=== PATIENT | female | born 1985 | race American Indian/Alaskan Native ===

== ENCOUNTER 2019-11-09 19:15 | Emergency (ER) | payer MEDICAID ==
--- NOTE | 2019-11-09 19:26 | Emergency Department Report ---
Blank Doc - Documentation Documentation: 34-year-old female that presents with vaginal bleeding and pelvic pain. This initial assessment/diagnostic orders/clinical plan/treatment(s) is/are subject to change based on patient's health status, clinical progression and re- assessment by fellow clinical providers in the ED. Further treatment and workup at subsequent clinical providers discretion. Patient/guardians urged not to elope from the ED as their condition may be serious if not clinically assessed and managed. Initial orders include: 1- Patient sent to [facility] for further evaluation and treatment 2- labs 3- UA 4- US OB
[2019-11-09 19:58] LABS: Bilirubin,Urine NEG (Negative); Blood,Urine LG (Negative); Color,Urine Yellow (Yellow); Mucus,Urine 2+ /HPF; Protein,Urine <15 mg/dL mg/dL (Negative)
[2019-11-09 20:18] VITALS: BP 104/72
--- NOTE | 2019-11-09 21:57 | Ultrasound Report ---
ULTRASOUND OBSTETRIC INDICATION / CLINICAL INFORMATION: vaginal bleedign and pelvic pain. Clinical Gestational Age (GA): 8 weeks 3 days by LMP TECHNIQUE: Transabdominal and Transvaginal. COMPARISON: None available. FINDINGS: No intrauterine gestational sac is identified. The uterus measures 9.4 x 4.1 x 6[address] ripe is 1 cm. ADNEXA: Left ovary is unremarkable. In the right ovary, there is a cystic area that has a thick wall but no increased peripheral vascularity, indeterminate but potentially representing a corpus luteum. This has a central hypoechoic area that measures 0.8 m in greatest dimension. Separate thin-walled, h ypoechoic cystic structure in the right ovary without increased blood flow measures 0.5 x 0.8 x 0.4 c m. FREE FLUID: Trace free fluid in the pelvis. ADDITIONAL FINDINGS: None. IMPRESSION: No intrauterine gestational sac is identified. This is considered a of unknown location. Se rial monitoring of beta hCG and close clinical follow-up are recommended, with repeat ultrasound as n eeded. If/when repeat pelvic ultrasound is performed, attention to the right ovary is recommended. Signer Name: Kamlesh Marcelino MD Signed: 11/09/2019 9:53 PM Workstation Name: [id number]
[2019-11-09 22:09] LABS: Basophils % (Auto) 0.9 % (0.0-1.8); Eosinophils # (Auto) 0.1 K/mm3 (0.0-0.4); Eosinophils % (Auto) 1.6 % (0.0-4.3); Hematocrit 33.8 % (30.3-42.9); Hemoglobin 10.8 gm/dl (10.1-14.3); Lymphocytes # (Auto) 1.4 K/mm3 (1.2-5.4); Mean Corpuscular HGB Conc 32 % (30-34); Mean Corpuscular Volume 86 fl (79-97); Monocytes # (Auto) 0.5 K/mm3 (0.0-0.8); Monocytes % (Auto) 10.7 % (0.0-7.3); Platelet Count 278 K/mm3 (140-440); Red Blood Count 3.96 M/mm3 (3.65-5.03); Red Cell Distribution Width 18.1 % (13.2-15.2)
--- NOTE | 2019-11-10 00:24 | Emergency Department Report ---
ED Female HPI - General Chief complaint: Vaginal Bleeding Stated complaint: LOWER ABD PAIN Time Seen by Provider: 11/09/19 19:25 Source: patient Mode of arrival: Ambulatory Limitations: No Limitations - History of Present Illness Initial comments: This is a 34-year-old -0-0-2 who presents the ED complaining of vaginal bleeding for the past week and a half. Patient states she was seen by her SAND ANALYST late February [place] and had a confirmed . Patient states last menstrual period was September 11, 2019. Patient states that she uses about 1 pad an hour. Patient was seen by her SAND ANALYST on Thursday and had a quant drawn. Patient states she cannot recall what the number was. Patient denies dysuria, abdominal pain, pelvic pain, fatigue, shortness of breath, chest pain or any other symptoms. MD Complaint: vaginal bleeding - Related Data Previous Rx's Medication Instructions Recorded Last Taken Type Ferrous Sulfate [Feosol 325 MG tab] 325 mg PO BID #60 tablet 12/03/14 Unknown Rx Vit-Fe Fumar-FA [ 1 each PO QDAY #30 tablet 12/03/14 Unknown Rx Vitamin] Ibuprofen [Motrin 800 MG tab] 800 mg PO Q8HR PRN #30 tablet 12/21/15 Unknown Rx Cyclobenzaprine [Flexeril] 10 mg PO TID PRN #30 tablet 01/10/16 Unknown Rx Ibuprofen [Motrin 600 MG tab] 600 mg PO Q6H #30 tablet 01/10/16 Unknown Rx traMADoL [Ultram] 50 mg PO Q6HR PRN #20 tablet 01/10/16 Unknown Rx Allergies Allergy/AdvReac Type Severity Reaction Status Date / Time Penicillins Allergy Diarrhea Verified 04/19/13 04:27 pseudoephedrine Allergy Rash Verified 04/19/13 04:27 banana Allergy Hives Uncoded 04/19/13 04:27 melon Allergy Shortness Uncoded 04/19/13 04:27 of Breath ED Review of Systems ROS: Stated complaint: LOWER ABD PAIN Other details as noted in HPI Comment: All other systems reviewed and negative ED Past Medical Hx - Past Medical History Previous Medical History?: Yes Hx Hypertension: No Hx CVA: No Hx Heart Attack/AMI: No Hx Congestive Heart Failure: No Hx Diabetes: No Hx Deep Vein Thrombosis: No Hx Pulmonary Embolism: No Hx GERD: No Hx Liver Disease: No Hx Renal Disease: No Hx Sickle Cell Disease: No Hx Arthritis: No Hx Headaches / Migraines: No Hx Seizures: No Hx Kidney Stones: No Hx Psychiatric Treatment: No Hx Asthma: Yes (attack 10 yrs ago) Hx COPD: No Hx Tuberculosis: No Hx Dementia: No Hx HIV: No Additional medical history: anemia - Surgical History Hx Coronary Stent: No Hx Open Heart Surgery: No Hx Pacemaker: No Hx Internal Defibrillator: No Hx Cholecystectomy: No Hx Appendectomy: No Hx Breast Surgery: No - Social History Smoking Status: Never Smoker Substance Use Type: None - Medications Home Medications: Home Medications Medication Instructions Recorded Confirmed Last Taken Type Ferrous Sulfate [Feosol 325 MG tab] 325 mg PO BID #60 tablet 12/03/14 Unknown Rx Vit-Fe Fumar-FA [ 1 each PO QDAY #30 tablet 12/03/14 Unknown Rx Vitamin] Ibuprofen [Motrin 800 MG tab] 800 mg PO Q8HR PRN #30 tablet 12/21/15 Unknown Rx Cyclobenzaprine [Flexeril] 10 mg PO TID PRN #30 tablet 01/10/16 Unknown Rx Ibuprofen [Motrin 600 MG tab] 600 mg PO Q6H #30 tablet 01/10/16 Unknown Rx traMADoL [Ultram] 50 mg PO Q6HR PRN #20 tablet 01/10/16 Unknown Rx ED Physical Exam - General Limitations: No Limitations General appearance: alert, in no apparent distress - Head Head exam: Present: atraumatic, normocephalic - Eye Eye exam: Present: normal appearance - ENT ENT exam: Present: mucous membranes moist - Neck Neck exam: Present: normal inspection - Respiratory Respiratory exam: Present: normal lung sounds bilaterally. Absent: respiratory distress - Cardiovascular Cardiovascular Exam: Present: regular rate, normal rhythm. Absent: systolic murmur, diastolic murmur, rubs, gallop - GI/Abdominal GI/Abdominal exam: Present: soft, normal bowel sounds - Extremities Exam Extremities exam: Present: normal inspection - Back Exam Back exam: Present: normal inspection - Neurological Exam Neurological exam: Present: alert, oriented X3 - Psychiatric Psychiatric exam: Present: normal affect, normal mood - Skin Skin exam: Present: warm, dry, intact, normal color. Absent: rash ED Course Vital Signs 11/09/19 11/10/19 19:27 00:25 Temperature 98 F Pulse Rate 101 H 84 Respiratory 18 17 Rate Blood Pressure 104/72 O2 Sat by Pulse 98 99 Oximetry ED Medical Decision Making - Lab Data Result diagrams: 11/09/19 21:13 Laboratory Last Values WBC 5.1 K/mm3 (4.5-11.0) 11/09/19 21:13 RBC 3.96 M/mm3 (3.65-5.03) 11/09/19 21:13 Hgb 10.8 gm/dl (10.1-14.3) 11/09/19 21:13 Hct 33.8 % (30.3-42.9) 11/09/19 21:13 MCV 86 fl (79-97) 11/09/19 21:13 MCH 27 pg (28-32) L 11/09/19 21:13 MCHC 32 % (30-34) 11/09/19 21:13 RDW 18.1 % (13.2-15.2) H 11/09/19 21:13 Plt Count 278 K/mm3 (140-440) 11/09/19 21:13 Lymph % (Auto) 27.0 % (13.4-35.0) 11/09/19 21:13 [place] % (Auto) 10.7 % (0.0-7.3) H 11/09/19 21:13 Eos % (Auto) 1.6 % (0.0-4.3) 11/09/19 21:13 Baso % (Auto) 0.9 % (0.0-1.8) 11/09/19 21:13 Lymph # 1.4 K/mm3 (1.2-5.4) 11/09/19 21:13 [place] # 0.5 K/mm3 (0.0-0.8) 11/09/19 21:13 Eos # 0.1 K/mm3 (0.0-0.4) 11/09/19 21:13 Baso # 0.0 K/mm3 (0.0-0.1) 11/09/19 21:13 Seg Neutrophils % 59.8 % (40.0-70.0) 11/09/19 21:13 Seg Neutrophils # 3.0 K/mm3 (1.8-7.7) 11/09/19 21:13 HCG, Quant 3712 mIU/mL (0-4) H 11/09/19 21:13 Urine Color Yellow (Yellow) 11/09/19 19:30 Urine Turbidity Clear (Clear) 11/09/19: Urine pH 5.0 (5.0-7.0) 11/09/19 19:30 Ur Specific [place] 1.019 (1.003-1.030) 11/09/19 19:30 Urine Protein <15 mg/dl mg/dL (Negative) 11/09/19: Urine Glucose (UA) Neg mg/dL (Negative) 11/09/19: Urine Ketones Neg mg/dL (Negative) 11/09/19: Urine Blood Lg (Negative) 11/09/19: Urine Nitrite Neg (Negative) 11/09/19 Urine Bilirubin Neg (Negative) 11/09/19: Urine Urobilinogen 2.0 mg/dL (<2.0) 11/09/19 19:30 Ur Leukocyte Esterase Neg (Negative) 11/09/19: Urine WBC (Auto) 1.0 /HPF (0.0-6.0) 11/09/19: Urine RBC (Auto) 3.0 /HPF (0.0-6.0) 11/09/19: U Epithel Cells (Auto) 1.0 /HPF (0-13.0) 11/09/19: Urine Mucus 2+ /HPF 11/09/19: Blood Type A POSITIVE 11/09/19 21:13 - Radiology Data Radiology results: report reviewed, image reviewed ULTRASOUND OBSTETRIC INDICATION / CLINICAL INFORMATION: vaginal bleedign and pelvic pain. Clinical Gestational Age (GA): 8 weeks 3 days by LMP TECHNIQUE: Transabdominal and Transvaginal. COMPARISON: None available. FINDINGS: No intrauterine gestational sac is identified. The uterus measures 9.4 x 4.1 x 6.2 cm. Endometrial stripe is 1 cm. ADNEXA: Left ovary is unremarkable. In the right ovary, there is a cystic area that has a thick wall but no increased peripheral vascularity, indeterminate but potentially representing a corpus luteum. This has a central hypoechoic area that measures 0.8 m in greatest dimension. Separate thin- walled, hypoechoic cystic structure in the right ovary without increased blood flow measures 0.5 x 0.8 x 0.4 cm. FREE FLUID: Trace free fluid in the pelvis. ADDITIONAL FINDINGS: None. IMPRESSION: No intrauterine gestational sac is identified. This is considered a of unknown location. Serial monitoring of beta hCG and close clinical follow-up are recommended, with repeat ultrasound as needed. If/when repeat pelvic ultrasound is performed, attention to the right ovary is recommended. Signer Name: Kamlesh Marcelino MD Signed: 11/09/2019 9:53 PM Workstation Name: [id number] Transcribed By: IRIS Dictated By: Kamlesh Marcelino MD Electronically Authenticated By: Kamlesh Marcelino MD Signed Date/Time: 11/09/19 2153 - Medical Decision Making 34-year-old female presents to ED with possible completed or ectopic ED course: Pt received ultra sound, CBC, urinalysis, test and quantitative ED All labs within normal limits, quantitative elevated at 3712 Patient did note that the last time she had a quantitative checked at the doctor's office she believes it was about 3000 but unsure. Discussed with patient to follow-up with SAND ANALYST in 2 days for repeat quant and a repeat ultrasound Patient states that bleeding is resolved when she is went into the bathroom to check Ultrasound shows no intrauterine gestation. See reported above Vital signs normalized patient is in no acute distress. I discussed with the patient if follow-up with her SAND ANALYST. I discussed all labs and ultrasound findings with the patient. I discussed with the patient that he if bleeding worsens or new symptoms develop to return to ED immediately Critical care attestation.: If time is entered above; I have spent that time in minutes in the direct care of this critically ill patient, excluding procedure time. ED Disposition Clinical Impression: Vaginal bleeding during , Spontaneous Disposition: - TO HOME OR SELFCARE Is pt being admited?: No Does the pt Need Aspirin: No Condition: Stable Instructions: Ectopic (ED), Spontaneous Miscarriage (ED), (ED) Additional Instructions: Make sure to follow up with the SAND ANALYST n as discussed. If you have any worsening symptoms or develop new symptoms please return to ED immediately. Referrals: PRIMARY CARE, [Primary Care Provider] - 3-5 Days [facility] [Provider Group] - 3-5 Days Forms: Accompanied Note, Work/School Release Form(ED) Time of Disposition: 00:20
== END 2019-11-10 00:25 | disposition home or self-care (01) ==
LOC: ED 19:15
DX: O03.9 Complete or unspecified spontaneous abortion without complication (principal); J45.909 Unspecified asthma, uncomplicated; Z88.0 Allergy status to penicillin; Z88.8 Allergy status to other drugs, medicaments and biological substances; Z91.018 Allergy to other foods; Z79.899 Other long term (current) drug therapy
CPT/HCPCS: 36415; 76801; 76817; 81001; 84702; 85025; 86900; 86901

== ENCOUNTER 2019-11-19 13:36 | Emergency (ER) | payer MEDICAID ==
[2019-11-19 14:00] LABS: Basophils % (Auto) 0.6 % (0.0-1.8); Hematocrit 27.6 % (30.3-42.9); Lymphocytes # (Auto) 0.8 K/mm3 (1.2-5.4); Lymphocytes % (Auto) 20.7 % (13.4-35.0); Mean Corpuscular HGB Conc 33 % (30-34); Mean Corpuscular Volume 85 fl (79-97); Monocytes # (Auto) 0.4 K/mm3 (0.0-0.8); Monocytes % (Auto) 9.1 % (0.0-7.3); Platelet Count 229 K/mm3 (140-440); Red Blood Count 3.23 M/mm3 (3.65-5.03)
[2019-11-19 14:23] LABS: Alanine Aminotransferase 5 units/L (7-56); Albumin 4.3 g/dL (3.9-5); BUN/Creatinine Ratio 16; Blood Urea Nitrogen 8 mg/dL (7-17); Calcium 9.1 mg/dL (8.4-10.2); Hemolysis Index 2
[2019-11-19 15:30] LABS: Bilirubin,Urine NEG (Negative); Blood,Urine LG (Negative); Color,Urine Colorless (Yellow); Protein,Urine <15 mg/dL mg/dL (Negative); RBC,Urine < 1.0 /HPF (0.0-6.0); Urobilinogen,Urine < 2.0 mg/dL (<2.0)
--- NOTE | 2019-11-19 16:56 | Ultrasound Report ---
ULTRASOUND OBSTETRIC INDICATION: Abdominal pain. Estimated clinical gestational age of 9 weeks, 6 days. TECHNIQUE: Transabdominal and Transvaginal. COMPARISON: OB ultrasound from 11/09/2019. FINDINGS: GESTATIONAL SAC: None seen. YOLK SAC: None seen. EMBRYO/FETUS: None seen. ADNEXA: Multiple follicles are seen within each ovary without an additional significant abnormality. There is expected color flow in the ovaries. FREE FLUID: Small amount. ADDITIONAL FINDINGS: None. IMPRESSION: No sonographic evidence of an intrauterine or ectopic . Please correlate with the clinical f indings. Signer Name: Connor Messina MD Signed: 11/19/2019 4:51 PM Workstation Name: [id number]
--- NOTE | 2019-11-19 16:59 | Emergency Department Report ---
ED HPI - General Chief complaint: Abdominal Pain Stated complaint: POSS ECTOPIC Time Seen by Provider: 11/19/19 14:37 Source: patient Mode of arrival: Ambulatory Limitations: No Limitations - History of Present Illness Initial comments: Patient is a 34-year-old female who presents emergency room with complaints of suprapubic abdominal pain that began last night. She states that when she goes to the bathroom she occasionally sees a small amount of blood when wiping. Patient states that she is currently . She states her last menstrual cycle was September 05. Patient states that she has been going to [facility] for her OB care. Patient states that she had an ultrasound yesterday and they did not see a gestational sac. She denies any fever, diarrhea, shortness of breath, chest pain. She has a past medical history of asthma. She has an allergy to penicillin. /P:2/A:0. during patients last ED visit her quant was 3712. - Related Data Previous Rx's Medication Instructions Recorded Last Taken Type Ferrous Sulfate [Feosol 325 MG tab] 325 mg PO BID #60 tablet 12/03/14 Unknown Rx Vit-Fe Fumar-FA [ 1 each PO QDAY #30 tablet 12/03/14 Unknown Rx Vitamin] Ibuprofen [Motrin 800 MG tab] 800 mg PO Q8HR PRN #30 tablet 12/21/15 Unknown Rx Cyclobenzaprine [Flexeril] 10 mg PO TID PRN #30 tablet 01/10/16 Unknown Rx Ibuprofen [Motrin 600 MG tab] 600 mg PO Q6H #30 tablet 01/10/16 Unknown Rx traMADoL [Ultram] 50 mg PO Q6HR PRN #20 tablet 01/10/16 Unknown Rx Allergies Allergy/AdvReac Type Severity Reaction Status Date / Time Penicillins Allergy Diarrhea Verified 04/19/13 04:27 pseudoephedrine Allergy Rash Verified 04/19/13 04:27 banana Allergy Hives Uncoded 04/19/13 04:27 melon Allergy Shortness Uncoded 04/19/13 04:27 of Breath ED Review of Systems ROS: Stated complaint: POSS ECTOPIC Other details as noted in HPI Comment: All other systems reviewed and negative ED Past Medical Hx - Past Medical History Previous Medical History?: Yes Hx Hypertension: No Hx CVA: No Hx Heart Attack/AMI: No Hx Congestive Heart Failure: No Hx Diabetes: No Hx Deep Vein Thrombosis: No Hx Pulmonary Embolism: No Hx GERD: No Hx Liver Disease: No Hx Renal Disease: No Hx Sickle Cell Disease: No Hx Arthritis: No Hx Headaches / Migraines: No Hx Seizures: No Hx Kidney Stones: No Hx Psychiatric Treatment: No Hx Asthma: Yes (attack 10 yrs ago) Hx COPD: No Hx Tuberculosis: No Hx Dementia: No Hx HIV: No Additional medical history: anemia - Surgical History Hx Coronary Stent: No Hx Open Heart Surgery: No Hx Pacemaker: No Hx Internal Defibrillator: No Hx Cholecystectomy: No Hx Appendectomy: No Hx Breast Surgery: No - Social History Smoking Status: Never Smoker Substance Use Type: None - Medications Home Medications: Home Medications Medication Instructions Recorded Confirmed Last Taken Type Ferrous Sulfate [Feosol 325 MG tab] 325 mg PO BID #60 tablet 12/03/14 Unknown Rx Vit-Fe Fumar-FA [ 1 each PO QDAY #30 tablet 12/03/14 Unknown Rx Vitamin] Ibuprofen [Motrin 800 MG tab] 800 mg PO Q8HR PRN #30 tablet 12/21/15 Unknown Rx Cyclobenzaprine [Flexeril] 10 mg PO TID PRN #30 tablet 01/10/16 Unknown Rx Ibuprofen [Motrin 600 MG tab] 600 mg PO Q6H #30 tablet 01/10/16 Unknown Rx traMADoL [Ultram] 50 mg PO Q6HR PRN #20 tablet 01/10/16 Unknown Rx ED Physical Exam - General Limitations: No Limitations General appearance: alert, in no apparent distress - Head Head exam: Present: atraumatic, normocephalic - Eye Eye exam: Present: normal appearance - ENT ENT exam: Present: mucous membranes moist - Respiratory Respiratory exam: Present: normal lung sounds bilaterally. Absent: respiratory distress, wheezes, rales, rhonchi, stridor, chest wall tenderness, accessory muscle use, decreased breath sounds, prolonged expiratory - Cardiovascular Cardiovascular Exam: Present: regular rate, normal rhythm, normal heart sounds. Absent: systolic murmur, diastolic murmur, rubs, gallop - GI/Abdominal GI/Abdominal exam: Present: soft, normal bowel sounds. Absent: distended, tenderness, guarding, rebound, rigid - Neurological Exam Neurological exam: Present: alert, oriented X3 - Psychiatric Psychiatric exam: Present: normal affect, normal mood - Skin Skin exam: Present: warm, dry, intact ED Course Vital Signs 11/19/19 11/19/19 13:39 17:15 Temperature 97.9 F Pulse Rate 78 82 Respiratory 16 18 Rate Blood Pressure 116/67 118/72 [Left] O2 Sat by Pulse 100 100 Oximetry ED Medical Decision Making - Lab Data Result diagrams: 11/19/19 13:50 11/19/19 13:50 Lab Results 11/19/19 11/19/19 11/19/19 Range/Units 13:50 13:50 13:50 WBC 4.0 L (4.5-11.0) K/mm3 RBC 3.23 L (3.65-5.03) M/mm3 Hgb 9.0 L (10.1-14.3) gm/dl Hct 27.6 L (30.3-42.9) % MCV 85 (79-97) fl MCH 28 (28-32) pg MCHC 33 (30-34) % RDW 18.0 H (13.2-15.2) % Plt Count 229 (140-440) K/mm3 Lymph % (Auto) 20.7 (13.4-35.0) % [place] % (Auto) 9.1 H (0.0-7.3) % Eos % (Auto) 1.0 (0.0-4.3) % Baso % (Auto) 0.6 (0.0-1.8) % Lymph # 0.8 L (1.2-5.4) K/mm3 [place] # 0.4 (0.0-0.8) K/mm3 Eos # 0.0 (0.0-0.4) K/mm3 Baso # 0.0 (0.0-0.1) K/mm3 Seg Neutrophils % 68.6 (40.0-70.0) % Seg Neutrophils # 2.8 (1.8-7.7) K/mm3 Sodium 134 L (137-145) mmol/L Potassium 3.7 (3.6-5.0) mmol/L Chloride 98.3 (98-107) mmol/L Carbon Dioxide 22 (22-30) mmol/L Anion Gap 17 mmol/L BUN 8 (7-17) mg/dL Creatinine 0.5 L (0.7-1.2) mg/dL Estimated GFR > 60 ml/min BUN/Creatinine Ratio 16 % Glucose 122 H (65-100) mg/dL Calcium 9.1 (8.4-10.2) mg/dL Total Bilirubin 0.60 (0.1-1.2) mg/dL AST 14 (5-40) units/L ALT 5 L (7-56) units/L Alkaline Phosphatase 45 (35-129) units/L Total Protein 7.4 (6.3-8.2) g/dL Albumin 4.3 (3.9-5) g/dL Albumin/Globulin Ratio 1.4 % HCG, Qual Positive (Negative) HCG, Quant (0-4) mIU/mL Urine Color (Yellow) Urine Turbidity (Clear) Urine pH (5.0-7.0) Ur Specific [place] (1.003-1.030) Urine Protein (Negative) mg/dL Urine Glucose (UA) (Negative) mg/dL Urine Ketones (Negative) mg/dL Urine Blood (Negative) Urine Nitrite (Negative) Urine Bilirubin (Negative) Urine Urobilinogen (<2.0) mg/dL Ur Leukocyte Esterase (Negative) Urine WBC (Auto) (0.0-6.0) /HPF Urine RBC (Auto) (0.0-6.0) /HPF U Epithel Cells (Auto) (0-13.0) /HPF 11/19/19 11/19/19 Range/Units 13:50 15:00 WBC (4.5-11.0) K/mm3 RBC (3.65-5.03) M/mm3 Hgb (10.1-14.3) gm/dl Hct (30.3-42.9) % MCV (79-97) fl MCH (28-32) pg MCHC (30-34) % RDW (13.2-15.2) % Plt Count (140-440) K/mm3 Lymph % (Auto) (13.4-35.0) % [place] % (Auto) (0.0-7.3) % Eos % (Auto) (0.0-4.3) % Baso % (Auto) (0.0-1.8) % Lymph # (1.2-5.4) K/mm3 [place] # (0.0-0.8) K/mm3 Eos # (0.0-0.4) K/mm3 Baso # (0.0-0.1) K/mm3 Seg Neutrophils % (40.0-70.0) % Seg Neutrophils # (1.8-7.7) K/mm3 Sodium (137-145) mmol/L Potassium (3.6-5.0) mmol/L Chloride (98-107) mmol/L Carbon Dioxide (22-30) mmol/L Anion Gap mmol/L BUN (7-17) mg/dL Creatinine (0.7-1.2) mg/dL Estimated GFR ml/min BUN/Creatinine Ratio % Glucose (65-100) mg/dL Calcium (8.4-10.2) mg/dL Total Bilirubin (0.1-1.2) mg/dL AST (5-40) units/L ALT (7-56) units/L Alkaline Phosphatase (35-129) units/L Total Protein (6.3-8.2) g/dL Albumin (3.9-5) g/dL Albumin/Globulin Ratio % HCG, Qual (Negative) HCG, Quant 1298 H (0-4) mIU/mL Urine Color Colorless (Yellow) Urine Turbidity Clear (Clear) Urine pH 6.0 (5.0-7.0) Ur Specific [place] 1.001 L (1.003-1.030) Urine Protein <15 mg/dl (Negative) mg/dL Urine Glucose (UA) Neg (Negative) mg/dL Urine Ketones Neg (Negative) mg/dL Urine Blood Lg (Negative) Urine Nitrite Neg (Negative) Urine Bilirubin Neg (Negative) Urine Urobilinogen < 2.0 (<2.0) mg/dL Ur Leukocyte Esterase Neg (Negative) Urine WBC (Auto) 1.0 (0.0-6.0) /HPF Urine RBC (Auto) < 1.0 (0.0-6.0) /HPF U Epithel Cells (Auto) 2.0 (0-13.0) /HPF - Radiology Data Radiology results: report reviewed ULTRASOUND OBSTETRIC INDICATION: Abdominal pain. Estimated clinical gestational age of 9 weeks, 6 days. TECHNIQUE: Transabdominal and Transvaginal. COMPARISON: OB ultrasound from 11/09/2019. FINDINGS: GESTATIONAL SAC: None seen. YOLK SAC: None seen. EMBRYO/FETUS: None seen. ADNEXA: Multiple follicles are seen within each ovary without an additional significant abnormality. There is expected color flow in the ovaries. FREE FLUID: Small amount. ADDITIONAL FINDINGS: None. IMPRESSION: No sonographic evidence of an intrauterine or ectopic . Please correlate with the clinical findings. Signer Name: Connor Messina MD Signed: 11/19/2019 4:51 PM Workstation Name: [id number] Transcribed By: SENA Dictated By: Connor Messina MD Electronically Authenticated By: Connor Messina MD Signed Date/Time: 11/19/191650 DD/ 47 TD/TT: - Medical Decision Making Patient is a 34-year-old female who presents emergency room with complaints of suprapubic abdominal pain that began last night. She states that when she goes to the bathroom she occasionally sees a small amount of blood when wiping. Patient states that she is currently . She states her last menstrual cycle was September 05. Patient states that she has been going to [facility] for her OB care. Patient states that she had an ultrasound yesterday and they did not see a gestational sac. She denies any fever, diarrhea, shortness of breath, chest pain. She has a past medical history of asthma. She has an a llergy to penicillin. /P:2/A:0. during patients last ED visit her quant was 3712. her hcg quant today is 1298. H and H is 9/27.6, mild normocytic anemia. UA without evidence of UTI. US OB: No sonographic evidence of an intrauterine or ectopic . Please correlate with the clinical findings. Quant and ultrasound consistent with spontaneous . Discussed all results with patient. advised pt Please increase your water intake. During your last visit your hCG quant was 3712, today your hCG quant is 1298 consistent with a miscarriage. Your ultrasound shows no intrauterine or ectopic . Please follow-up with an CNA PCT until your quant has decreased to 0. Please follow-up with a primary care doctor regarding your anemia. Return to the emergency room immediately for any new or worsening symptoms. Critical care attestation.: If time is entered above; I have spent that time in minutes in the direct care of this critically ill patient, excluding procedure time. ED Disposition Clinical Impression: Spontaneous miscarriage Anemia Qualifiers: Anemia type: unspecified type Qualified Code(s): D64.9 - Anemia, unspecified Disposition: DC-01 TO HOME OR SELFCARE Is pt being admited?: No Does the pt Need Aspirin: No Condition: Stable Instructions: Spontaneous Miscarriage (ED), Anemia (ED) Additional Instructions: Please increase your water intake. During your last visit your hCG quant was 3712, today your hCG quant is 1298 consistent with a miscarriage. Your ultras ound shows no intrauterine or ectopic . Please follow-up with an CNA PCT until your quant has decreased to 0. Please follow-up with a primary care doctor regarding your anemia. Return to the emergency room immediately for any new or worsening symptoms. [facility]errals[facility] [Other] - 2-3 Days Time of Disposition: 17:01 Print Language: BENGAL[place]
[2019-11-19 17:16] VITALS: BP 118/72
== END 2019-11-19 17:10 | disposition home or self-care (01) ==
LOC: ED 13:36
DX: O03.9 Complete or unspecified spontaneous abortion without complication (principal); O99.011 Anemia complicating pregnancy, first trimester; O99.511 Diseases of the respiratory system complicating pregnancy, first trimester; J45.909 Unspecified asthma, uncomplicated; Z3A.01 Less than 8 weeks gestation of pregnancy
CPT/HCPCS: 36415; 76801; 76817; 80053; 81001; 84702; 84703; 85025